=== PATIENT | male | born 1990 | race African-American/Black ===

== ENCOUNTER 2024-11-07 01:51 | Emergency (ER) | payer BC, SELFPAY ==
[2024-11-07 02:12] LABS: Glucose, Urine (Dipstick) Negative (Negative); Leukocyte Negative (Negative); Protein, Urine (Dipstick) 100 mg/dL (Neg-Trace); Specific Gravity, Urine Greater/Equal 1.030 (1.005-1.030)
[2024-11-07 02:13] LABS: Bacteria/HPF Rare-Few HPF (None Seen); CAUTI Indications for Culture Alt mental st,lethar; Mucous/LPF 1+ LPF (<2+); RBC/HPF 0-3 HPF (0-3); WBC/HPF 0-3 HPF (0-3)
[2024-11-07 02:14] LABS: Urine Culture Reflex No No
[2024-11-07 02:20] LABS: Cocaine Metabolite Screen Negative (Negative); THC/Cannabinoid Screen PRELIM POSITIVE (Negative); Tricyclic Screen Negative (Negative)
== END 2024-11-07 02:43 | disposition home or self-care (01) ==
LOC: MADERS 01:51
DX: F15.90 Other stimulant use, unspecified, uncomplicated (principal); R03.0 Elevated blood-pressure reading, without diagnosis of hypertension
CPT/HCPCS: 80306; 81001; 99284